=== PATIENT | female | born 1995 | race Hispanic/Latino ===

== ENCOUNTER 2017-11-25 22:49 | Emergency (ER) | payer BC, OTHER ==
[2017-11-25] MEDS ORDERED: diphenhydrAMINE 50 MG/ML VIAL ONE (23:12)
[2017-11-25] MEDS ORDERED: Metoclopramide HCl 10 MG/2 ML VIAL ONE (23:12)
[2017-11-25 23:31] LABS: #Lymphocytes 2.8 thou/uL (1.20-3.40); #Monocytes 0.7 thou/uL (0.11-0.59); %Basophils 0.3 % (0.0-1.0); %Eosinophils 0.3 % (0.0-10.0); %Lymphocytes 28.9 % (21.0-51.0); %Neutrophils 63.4 % (42.0-75.0); Hemoglobin 13.7 g/dL (12.0-16.0); Mean Corpuscular HGB CONC 33.6 g/dL (32.0-36.0); Mean Corpuscular Hemoglobin 29.8 pg (27.0-31.0); Mean Corpuscular Volume 88.7 fl (81.0-99.0); Mean Platelet Volume 6.5 fL (7.4-10.4); Platelet Count 373 thou/uL (130-400); RBC Distribution Width 12.6 % (11.5-14.5); White Blood Cell (WBC) Count 9.5 thou/uL (4.8-10.8)
[2017-11-25 23:37] LABS: BHCG - Serum Negative (NEGATIVE); Pregs Control Background? CLEAR/WHITE (CLR/WHITE); Pregs Control Bar Appear? YES (CONTROL BAR)
[2017-11-25 23:44] LABS: ALT (SGPT) 21 U/L (8-55); AST (SGOT) 24 U/L (5-34); Albumin 4.2 g/dL (3.5-5.0); Alkaline Phosphatase 89 U/L (40-150); Anion Gap 13 mmol/L (10-20); BUN (Urea Nitrogen) 11 mg/dL (7.0-18.7); Bilirubin, Total 0.2 mg/dL (0.2-1.2); Calc. Creatinine Clearance 0 mL/min (70-130); Calcium 9.3 mg/dL (7.8-10.44); Carbon Dioxide 22 mmol/L (22-29); Chloride 106 mmol/L (98-107); Estimated GFR-MDRD Greater than 90; Globulin 3.6 g/dL (2.4-3.5); Glucose 93 mg/dL (70-105); Potassium 3.8 mmol/L (3.5-5.1); Protein, Total 7.8 g/dL (6.0-8.3); Sodium 137 mmol/L (136-145)
--- NOTE | 2017-11-25 23:56 | CT ---
HEAD CT WITHOUT CONTRAST 11/25/17 COMPARISON: None. HISTORY: Trauma, pain. TECHNIQUE: Serial axial CT imaging at 5 mm intervals from vertex through skull base without contrast. FINDINGS: There is mucosal thickening of the left maxillary sinus. Imaged paranasal sinuses and mastoid air rashaad ls are otherwise unremarkable. There is no displaced calvarial fracture. No intracranial hemorrhage, midline shift, mass effect or ventricular enlargement. IMPRESSION: No intracranial hemorrhage or displaced calvarial fracture. POS: [facility]
--- NOTE | 2017-11-25 23:58 | CT ---
CT OF CERVICAL SPINE WITHOUT CONTRAST: 11/25/17 COMPARISON: None. HISTORY: Fall, trauma, pain. TECHNIQUE: Serial axial CT imaging at 2.5 mm intervals from skull base through lung apices without contrast. Co miko and sagittal reformatted imaging obtained. FINDINGS: The imaged lung apices are unremarkable. The craniocervical junction, occipital condyles, dens, C1-2 articulation, and cervicothoracic junction are intact. Cervical vertebral body height and alignment a ppears normal with no fracture or evidence of dislocation. IMPRESSION: No acute findings. POS: [facility]
[2017-11-26] MEDS ORDERED: Ketorolac Tromethamine 30 MG/ML VIAL ONE (00:09)
== END 2017-11-26 00:53 | disposition home or self-care (01) ==
LOC: ERS 22:49
DX: R51 Headache (principal)
CPT/HCPCS: 70450; 72125; 80053; 84703; 85025; 96365; 96375; J1200; J1885; J2765

== ENCOUNTER 2020-08-08 13:58 | Emergency (ER) | payer BC ==
[2020-08-08] MEDS ORDERED: Lorazepam 0.5 MG TAB ONE (14:52)
== END 2020-08-08 15:26 | disposition home or self-care (01) ==
LOC: ERS 13:58
DX: F41.9 Anxiety disorder, unspecified (principal)
CPT/HCPCS: 99283

== ENCOUNTER 2022-09-30 22:43 | Emergency (ER) | payer BC, OTHER ==
[2022-09-30 23:49] LABS: #Basophils 0.1 thou/uL (0.0-0.2); #Eosinphils 0.1 thou/uL (0.0-0.7); #Lymphocytes 2.9 thou/uL (1.20-3.40); #Monocytes 0.7 thou/uL (0.11-0.59); #Neutrophils 8.9 thou/uL (1.40-6.50); %Basophils 0.5 % (0.0-1.0); %Eosinophils 0.5 % (0.0-10.0); %Lymphocytes 23.2 % (21.0-51.0); %Monocytes 5.4 % (0.0-10.0); %Neutrophils 70.4 % (42.0-75.0); Hemoglobin 12.5 g/dL (12.0-16.0); Mean Corpuscular HGB CONC 32.5 g/dL (32.0-36.0); Mean Corpuscular Volume 86.1 fl (78.0-98.0); Mean Platelet Volume 7.4 fL (7.4-10.4); Platelet Count 401 10x3/uL (130-400); Red Blood Cell (RBC) Count 4.45 mill/uL (4.20-5.40); White Blood Cell (WBC) Count 12.7 10x3/uL (4.8-10.8)
[2022-10-01 00:12] LABS: ALT (SGPT) 17 U/L (8-55); AST (SGOT) 19 U/L (5-34); Albumin 4.3 g/dL (3.5-5.0); Alkaline Phosphatase 101 U/L (40-110); Anion Gap 13 mmol/L (10-20); BUN (Urea Nitrogen) 10 mg/dL (7.0-18.7); Bilirubin, Total Less than 0.2 mg/dL (0.2-1.2); Calc. Creatinine Clearance 0 mL/min (70-130); Calcium 9.3 mg/dL (7.8-10.44); Carbon Dioxide 19 mmol/L (22-29); Chloride 110 mmol/L (98-107); Estimated GFR 96; Globulin 3.2 g/dL (2.4-3.5); Glucose 108 mg/dL (70-105); Potassium 4.1 mmol/L (3.5-5.1); Protein, Total 7.5 g/dL (6.0-8.3); Sodium 138 mmol/L (136-145)
== END 2022-10-01 00:26 | disposition left against medical advice (07) ==
LOC: ERS 22:43
DX: Z53.21 Procedure and treatment not carried out due to patient leaving prior to being seen by health care provider (principal)
CPT/HCPCS: 36415; 71045; 80053; 84484; 85025; 93005